=== PATIENT | male | born 1990 | race Caucasian/White ===

== ENCOUNTER 2018-11-29 04:20 | Emergency (ER) | payer SELFPAY ==
[~2018-11-29] VITALS: Ht 167.6 cm; Wt 83.9 kg
[2018-11-29 04:25] VITALS: BP 114/69
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
[2018-11-29 04:38] VITALS: BP 114/69
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
== END 2018-11-29 04:38 ==
LOC: MED 04:20
DX: T14.90XA Injury, unspecified, initial encounter (principal); F17.200 Nicotine dependence, unspecified, uncomplicated; Z02.89 Encounter for other administrative examinations; V89.2XXA Person injured in unspecified motor-vehicle accident, traffic, initial encounter; Y93.89 Activity, other specified; Y92.89 Other specified places as the place of occurrence of the external cause; Y99.8 Other external cause status
CPT/HCPCS: 99283